=== PATIENT | female | born 1990 | race Caucasian/White ===

== ENCOUNTER 2020-02-08 04:39 | Day surgery (SDC) | payer OTHER ==
[2020-02-07 09:23] VITALS: BMI 38.0
[2020-02-08] MEDS ORDERED: EPHEDRINE SULFATE/0.9% NACL/PF 50 MG/10 ML SYRINGE NR ONE (07:22)
[2020-02-08] MEDS ORDERED: PROPOFOL 20 ML ONE ×3 (07:22→08:04)
[2020-02-08] MEDS ORDERED: SUCCINYLCHOLINE CHLORIDE 200 MG/10 ML SYRINGE ONE (07:23)
[2020-02-08] MEDS ORDERED: MIDAZOLAM HCL 2 MG/2 ML SINGLE DOSE VIAL ONE (07:23)
--- NOTE | 2020-02-08 07:44 | HP ---
History & Physical Update - History History: No Change (Consent signed and witnessed) - Physical Physical: No Change - Assessment Assessment: No Change - Plan Plan: No Change
[2020-02-08] MEDS ORDERED: SILVER NITRATE 75% APPLIC STCK 1 PKT EACH TP ONE (08:28)
[2020-02-08] MEDS ORDERED: KETOROLAC TROMETHAMINE 30 MG/1 ML VIAL ONE (08:29)
[2020-02-08] MEDS ORDERED: DEXAMETHASONE SOD PHOSPHATE 4 MG/1 ML VIAL ONE (08:29)
[2020-02-08] MEDS ORDERED: LIDOCAINE HCL/PF 2% SDV 5ML VIAL ONE (08:29)
[2020-02-08] MEDS ORDERED: GLYCOPYRROLATE 0.2 MG/1 ML VIAL ONE (08:29)
[2020-02-08] MEDS ORDERED: ROCURONIUM BROMIDE 100 MG/10 ML VIAL ONE (08:29)
[2020-02-08] MEDS ORDERED: IBUPROFEN 800 MG/8 ML IJ IVPB PRN (08:58)
[2020-02-08] MEDS ORDERED: ONDANSETRON 4 MG/2 ML VIAL IVPUSH PRN (08:58)
[2020-02-08] MEDS ORDERED: oxyCODONE HCL 5 MG TABLET PO PRN (08:58)
[2020-02-08] MEDS ORDERED: IBUPROFEN 600 MG TABLET (FP) PO PRN (08:58)
[2020-02-08] MEDS ORDERED: ELECTROLYTE-148 SOLN 1,000 ML IV SCH (09:00)
--- NOTE | 2020-02-08 09:02 | OP ---
Operative Note - Note: Operative Date: 02/08/20 Pre-Operative Diagnosis: 29yo P0 with thick Endometrium, abnormal menses Operation: Hysteroscopy, polypectomy, D&C Findings: 1. Endometrial polyp 2.5cm 2. Overgrown Endometrium Post-Operative Diagnosis: Same as Pre-op Surgeon: Carol Rogers Anesthesiologist/JOB RECRUITER: Lazaro Garcias Anesthesia: MAC Specimens Removed: 1. Endometrial Polyp+Endometrial curettings Estimated Blood Loss (mls): 5 Drains & Tubes with Location: 50cc Fluid deficit Drains, Volume Out (mls): 50 Fluid Volume Replaced (mls): 900 Operative Report Dictated: Yes
--- NOTE | 2020-02-08 09:43 | OP ---
DATE OF OPERATION: 02/08/2020 PREOPERATIVE DIAGNOSIS: A 29-year-old para 0 with thick endometrium, abnormal menses. OPERATION: Hysteroscopy, polypectomy, dilation and curettage. FINDINGS: Endometrial polyp 2.5 cm and overgrown endometrium. POSTOPERATIVE DIAGNOSIS: A 29-year-old para 0 with thick endometrium, abnormal menses. SURGEON: Carol Rogers MD ANESTHESIOLOGIST: Lazaro Garcias MD ANESTHESIA: MAC. SPECIMEN SENT TO PATHOLOGY: Endometrial polyp plus endometrial curettings. DESCRIPTION OF THE OPERATIVE PROCEDURE: After assuring informed consent patient was brought to the operating room where she was placed in dorsal lithotomy position. Abdomen and perineum and vagina were prepped and draped in a sterile fashion. Cortes retractors were placed into the cervix and cervix was articulated with single-tooth tenaculum and gradually dilated to accommodate 6.3-mm Symphion hysteroscope. Symphion hysteroscope was white balanced and primed and introduced into the uterus without any difficulty. The above findings were noted and resectoscope portion of the Symphion was introduced through the operative channel. The polyp and endometrial curettings were resected without any difficulty. Clear cavity was visualized. Excellent hemostasis was noted. All instruments were subsequently removed from the uterus, cervix and vagina. Instrument and sponge count was correct x2. Estimated blood loss 5 mL. Urine 50 mL were drained at the start of the procedure. Patient received 900 mL of IV fluids and fluid deficit was found to be 50 mL. Patient tolerated procedure well and was brought to the recovery room in stable condition. Genia [id number]
[2020-02-08] MEDS ORDERED: NEOSTIGMINE METHYLSULFATE 0.5 MG/ML - 10 ML MDV ONE (10:47)
[2020-02-08] MEDS ORDERED: LACTATED RINGERS SOLUTION 1,000 ML IV SCH (11:00)
[2020-02-08 11:57] VITALS: BP 106/64; PULSE 73; TEMP 98
--- NOTE | 2020-02-10 18:08 | PATH ---
Surgical Pathology Report Patient Name: LINDA SINGH [facility]. Rec. #: [id number] /Age/Gender: 1990 (Age: 29) / F Account: [id number] Location: [facility] [facility] Taken: 02/08/2020 Received: 02/08/2020 Reported: 02/10/2020 Physicians: Carol Rogers M.D. Specimen(s) Received ENDOMETRIAL CURETTINGS Clinical History Excessive, frequent, irregular menstruation Final Diagnosis POLYP WITH ENDOMETRIAL CURETTINGS: FRAGMENTS OF ENDOMETRIAL POLYP. SEPARATE FRAGMENTS OF PROLIFERATIVE ENDOMETRIUM. 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 CLINICAL CORRELATION IS RECOMMENDED. Electronically Signed Giovanni Mcnamara M.D. Gross Description Received in formalin labeled "polyp, endometrial curettings," is a 4.0 x 2.8 x 0.4 cm aggregate of ellington pink soft tissue fragments. The formalin is filtered and the specimen is entirely submitted in 3 cassettes. /02/08/2020 [facility]/02/08/2020
== END 2020-02-08 11:58 | disposition home or self-care (01) ==
LOC: JASU-SURG 04:39 → EDUNIT# 11:00 → JASU-SURG 11:58
PROVIDERS: ATTEND Obstetrics & Gynecology
PROC: 0UB98ZX Excision of Uterus, Via Natural or Artificial Opening Endoscopic, Diagnostic (ICD-10-PCS; principal; 2020-02-08 07:30)
PROC: 0UDB8ZX Extraction of Endometrium, Via Natural or Artificial Opening Endoscopic, Diagnostic (ICD-10-PCS; 2020-02-08 07:30)
DX: N84.0 Polyp of corpus uteri (principal); N92.6 Irregular menstruation, unspecified; R93.89 Abnormal findings on diagnostic imaging of other specified body structures
CPT/HCPCS: 36415; 84703; 86850; 86900; 86901; 88305-TC; 94760

== ENCOUNTER 2021-07-23 09:12 | Emergency (ER) | payer OTHER ==
[2021-07-23 09:25] VITALS: BP 120/73; PULSE 90; TEMP 97.9; BMI 35.2
[2021-07-23] MEDS ORDERED: FAMOTIDINE 10 MG TABLET PO ONE (09:29)
[2021-07-23] MEDS ORDERED: diphenhydrAMINE HCL 12.5 MG/5 ML UNIT-DOSE CUPS PO ONE (09:30)
[2021-07-23] MEDS ORDERED: predniSONE 20 MG TABLET (UD) PO ONE (09:48)
[2021-07-23] MEDS ORDERED: predniSONE 20 MG TABLET (UD) ONE (09:55)
[2021-07-23] MEDS ORDERED: FAMOTIDINE 10 MG TABLET ONE (09:56)
[2021-07-23] MEDS ORDERED: diphenhydrAMINE HCL 25 MG CAPSULE (FP) PO ONE (09:56)
== END 2021-07-23 11:36 | disposition home or self-care (01) ==
LOC: JER 09:12
DX: T78.3XXA Angioneurotic edema, initial encounter (principal); T78.40XA Allergy, unspecified, initial encounter
CPT/HCPCS: 71046-TC-FY; 93005; 93010; 99285-25; C9803; U0003; U0005